=== PATIENT | female | born 1960 | race Caucasian/White ===

== ENCOUNTER 2020-06-27 10:09 | Outpatient (CLI) | payer BC ==
[2020-06-27 23:42] LABS: SARS-CoV-2 PCR by NAA Not Detected (NotDetected)
== END 2020-06-27 10:10 | disposition home or self-care (01) ==
LOC: CSHLAB 10:09
PROVIDERS: ATTEND Surgery
DX: Z20.822 Contact with and (suspected) exposure to COVID-19 (principal); Z86.010 Personal history of colon polyps
CPT/HCPCS: 87635; U0003; U0005

== ENCOUNTER 2020-06-30 07:29 | Day surgery (SDC) | payer BC ==
[2020-06-28 15:10] VITALS: BMI 19.7
[2020-06-30] MEDS ORDERED: Lidocaine 2% MPF 10 ML AMP (For Epidural Use) ONE (09:34)
[2020-06-30] MEDS ORDERED: PROPOFOL 40 ML ONE (09:34)
[2020-06-30] MEDS ORDERED: PROPOFOL 20 ML ONE ×3 (09:59→10:19)
== END 2020-06-30 11:36 | disposition home or self-care (01) ==
LOC: CSHSDC 07:29
PROVIDERS: ATTEND Surgery
PROC: 0DJD8ZZ Inspection of Lower Intestinal Tract, Via Natural or Artificial Opening Endoscopic (ICD-10-PCS; principal; 2020-06-30)
DX: Z12.11 Encounter for screening for malignant neoplasm of colon (principal); Z86.010 Personal history of colon polyps; E78.00 Pure hypercholesterolemia, unspecified
CPT/HCPCS: J2001; J2704